=== PATIENT | male | born 1995 | race African-American/Black ===

== ENCOUNTER 2017-04-25 06:16 | Emergency (ER) | payer SELFPAY ==
[~2017-04-25] VITALS: Ht 180.3 cm; Wt 79.5 kg
[2017-04-25 06:20] VITALS: TEMP 97.7
[2017-04-25] MEDS ORDERED: PREDNISONE20 MG PO (06:53)
[2017-04-25 07:38] VITALS: BP 123/70; PULSE 82
== END 2017-04-25 07:40 | disposition home or self-care (01) ==
LOC: COL.ER 06:16
DX: J45.901 Unspecified asthma with (acute) exacerbation (principal)
CPT/HCPCS: J7512

== ENCOUNTER 2017-09-01 16:21 | Emergency (ER) | payer SELFPAY ==
[~2017-09-01] VITALS: Ht 180.3 cm; Wt 79.5 kg
[~2017-09-01 16:21] MED LIST: PREDNISONE20 MG PO
[2017-09-01 16:29] VITALS: BP 130/64; PULSE 73; TEMP 98.1
[2017-09-01] MEDS ORDERED: PREDNISONE20 MG PO (18:16)
== END 2017-09-01 18:22 | disposition home or self-care (01) ==
LOC: COL.ER 16:21
DX: J45.901 Unspecified asthma with (acute) exacerbation (principal)
CPT/HCPCS: J7512

== ENCOUNTER 2017-12-02 19:53 | Emergency (ER) | payer SELFPAY ==
[~2017-12-02] VITALS: Ht 177.8 cm; Wt 79.5 kg
[2017-12-02 20:12] VITALS: BP 135/75; TEMP 97.9
[2017-12-02 22:22] VITALS: PULSE 76
[2017-12-02] MEDS ORDERED: PREDNISONE20 MG PO (22:36)
== END 2017-12-02 22:49 | disposition home or self-care (01) ==
LOC: COL.ER 19:53
DX: J45.901 Unspecified asthma with (acute) exacerbation (principal)
CPT/HCPCS: J7512